=== PATIENT | male | born 1965 | race Caucasian/White ===

== ENCOUNTER → 2017-03-01 | Outpatient (CLI) | payer OTHER ==
--- NOTE | 2017-03-01 11:58 | EST ---
DATE OF SERVICE: 03/01/2017 AGE: 51Y SEX: M HT: 71" WT: 240 lbs. Protocol Ethan: X Other: Stress Stage: 2 Dur. of Exercise: 7:00 *Heart Rate Blood Pressure *Rest: 69 Rest: 151/94 * *Max. Achieved: 158 Maximum BP: 189/90 85% PMHR: 142 100% PMHR: 167 *METS: 8.5 INDICATIONS: Chest pain. MEDICATIONS: Zolpidem, diclofenac, amphetamines. Patient was exercised for a total period of 7 minutes. Peak heart rate of 158 was achieved. Maximum blood pressure of 189/90 mmHg was noted. Resting EKG shows normal sinus rhythm, more NH interval and QRS duration and normal ST-T waves. No ST segment depression suggestive of ischemia was noted. Patient did not complain of any chest pain during the test. FINAL IMPRESSION: 1. This exercise test is not suggestive of ischemia. 2. Patient's exercise tolerance is below-average. 3. Patient did not complain of any chest pain during the test.
== END ==
LOC: RADNMMAIN 10:35
PROVIDERS: ATTEND Internal Medicine
DX: Z09 Encounter for follow-up examination after completed treatment for conditions other than malignant neoplasm (principal); Z82.49 Family history of ischemic heart disease and other diseases of the circulatory system
CPT/HCPCS: 93017

== ENCOUNTER → 2017-11-08 | Outpatient (CLI) | payer OTHER ==
--- NOTE | 2017-11-08 08:56 | CT ---
EXAMINATION TYPE: CT abdomen wo con DATE OF EXAM: 11/08/2017 COMPARISON: NONE HISTORY: LUQ pain CT DLP: 811 mGycm Automated exposure control for dose reduction was used. TECHNIQUE: Helical acquisition of images was performed from the lung bases through the top of iliac crest to include entire abdomen. CONTRAST: Performed and without IV contrast. FINDINGS: Lack of intravenous contrast may compromise the exam. LUNG BASES: No significant abnormality is appreciated. LIVER/GB: No significant abnormality is appreciated. PANCREAS: No significant abnormality is seen. SPLEEN: No significant abnormality is seen. ADRENALS: No significant abnormality is seen. KIDNEYS: Possible parapelvic cysts present. BOWEL: The appendix is normal. No bowel obstruction. LYMPH NODES: No significant abnormality is appreciated. OSSEOUS STRUCTURES: No significant abnormality is seen. FREE AIR: No Free Air visible ASCITES: None visible. RETROPERITONEAL ADENOPATHY: No Retroperitoneal Adenopathy visible. OTHER: IMPRESSION: NONCONTRAST EXAM. NO SIGNIFICANT ABNORMALITY EVIDENT WITHIN THE ABDOMEN. POSSIBLE PARAPELVIC CYSTS WI THIN THE KIDNEYS.
== END | disposition home or self-care (01) ==
LOC: RADCTMAIN 06:55
PROVIDERS: ATTEND Internal Medicine
DX: R10.12 Left upper quadrant pain (principal)
CPT/HCPCS: 74150

== ENCOUNTER → 2019-10-30 | Outpatient (CLI) | payer OTHER ==
--- NOTE | 2019-10-30 09:50 | US ---
EXAMINATION TYPE: US abdomen complete DATE OF EXAM: 10/30/2019 COMPARISON: NONE CLINICAL HISTORY: R10.9 abdominal pain. bloating and abd pain EXAM MEASUREMENTS: Liver Length: 15.9 cm Gallbladder Wall: 0.2 cm CBD: 0.8 cm Spleen: 10.7 cm Right Kidney: 9.1 x 5.2 x 6.3 cm Left Kidney: 11.1 x 4.6 x 6.1 cm Pancreas: wnl Liver: wnl Gallbladder: wnl Evidence for sonographic Ramos's sign: no CBD: wnl Spleen: wnl Right Kidney: wnl Left Kidney: wnl Upper IVC: wnl Abd Aorta: wnl The liver is homogenous. The intrahepatic portion of the IVC and proximal abdominal aorta are within normal limits. There is no evidence of cholelithiasis. Common bile duct is unremarkable. The visu alized portions of the pancreas are homogenous. The spleen is unremarkable. Kidneys are symmetric a nd free of hydronephrosis. No renal lesions are seen. IMPRESSION: Unremarkable abdominal ultrasound. No sonographic evidence of cholelithiasis nor acute ch olecystitis.
== END | disposition home or self-care (01) ==
LOC: RADUSWWP 08:55
PROVIDERS: ATTEND Family Medicine
DX: R10.9 Unspecified abdominal pain (principal)
CPT/HCPCS: 76700

== ENCOUNTER → 2022-09-12 | Outpatient (CLI) | payer OTHER ==
--- NOTE | 2022-09-12 10:43 | US ---
EXAMINATION TYPE: US carotid duplex BILAT DATE OF EXAM: 09/12/2022 COMPARISON: NONE CLINICAL HISTORY: R53.83 FATIGUE. Fatigue. TECHNIQUE: Carotid duplex ultrasound examination. Indirect Doppler criteria was utilized. FINDINGS: EXAM MEASUREMENTS: RIGHT: Peak Systolic Velocity (PSV) cm/sec ----- Right CCA: 87.5 ----- Right ICA: 103.0 ----- Right ECA: 124.6 ICA/CCA ratio: 1.2 RIGHT: End Diastole cm/sec ----- Right CCA: 25.9 ----- Right ICA: 28.0 ----- Right ECA: 17.2 LEFT: Peak Systolic Velocity (PSV) cm/sec ----- Left CCA: 101.8 ----- Left ICA: 107.9 ----- Left ECA: 105.3 ICA/CCA ratio: 1.1 LEFT: End Diastole cm/sec ----- Left CCA: 30.3 ----- Left ICA: 36.5 ----- Left ECA: 12.7 VERTEBRALS (direction of flow): Right Vertebral: Antegrade Left Vertebral: Antegrade Rhythm: Normal INSIDE PLANT SUPERVISOR NOTES: No significant stenosis seen by today's ultrasound. IMPRESSION: Less than 50% stenosis of the bilateral carotid bifurcations. Criteria for Assigning % of Stenosis / Diameter reduction (Estimation based on the indirect measurements of the internal carotid artery velocities (ICA PSV). 1. Normal (no stenosis)=ICA PSV < 125 cm/s: ratio < 2.0: ICA EDV<40 cm/s. 2. Less than 50% stenosis=ICA PSV < 125 cm/s: ratio < 2.0: ICA EDV<40 cm/s. 3. 50 to 69% stenosis=ICA PSV of 125 to 230 cm/s: ration 2.0 ? 4.0: ICA EDV 40-100 cm/s. 4. Greater than 70% stenosis to near occlusion= ICA PSV > 230 cm/s: ratio > 4.0: ICA EDV > 100 cm/s. 5. Near occlusion= ICA PSV velocities may be low or undetectable: variable ratio and ICA EDV. 6. Total occlusion=unable to detect flow.
== END | disposition home or self-care (01) ==
LOC: RADUSWWP 09:36
PROVIDERS: ATTEND Family Medicine
DX: I65.23 Occlusion and stenosis of bilateral carotid arteries (principal)
CPT/HCPCS: 93880

== ENCOUNTER → 2023-07-08 | Outpatient (CLI) | payer OTHER ==
--- NOTE | 2023-07-08 14:11 | XR ---
EXAMINATION TYPE: XR ankle complete LT, XR foot complete LT DATE OF EXAM: 07/08/2023 2:06 PM CLINICAL INDICATION:Male, 57 years old with history of S93.402A L ankle sprain; [facility] COMPARISON: None TECHNIQUE: XR ankle complete LT, XR foot complete LT; foot and ankle are imaged in frontal, lateral and oblique projections. FINDINGS: There is no evidence of acute osseous pathology. The joint spaces are well-preserved without evidenc e of subluxation or dislocation. Kager's fat pad is intact. No radiopaque foreign bodies are identifi ed. IMPRESSION: 1. No evidence of acute fracture. 2. Subcutaneous swelling around the ankle likely secondary to underlying soft tissue injury.
== END | disposition home or self-care (01) ==
LOC: RADXRMAIN 13:44
PROVIDERS: ATTEND Emergency Medicine
DX: S93.402A Sprain of unspecified ligament of left ankle, initial encounter (principal); M79.89 Other specified soft tissue disorders

== ENCOUNTER → 2023-10-01 | Outpatient (CLI) | payer OTHER ==
--- NOTE | 2023-10-01 20:40 | CT ---
EXAMINATION TYPE: CT abdomen pelvis wo con DATE OF EXAM: 10/01/2023 COMPARISON: 12/06/2017 HISTORY: Abdominal distention x [address] DLP: 1926.7 mGycm Automated exposure control for dose reduction was used. TECHNIQUE: Helical acquisition of images was performed from the lung bases through the pelvis. FINDINGS: Visualized lungs are clear. Gallbladder is normal without distention, wall thickening, gallstones or pericholecystic fluid. There is no organomegaly involving the solid visceral organs of the upper abdomen. There is no renal calcification or hydronephrosis. The caliber the abdominal aorta is normal. The bowel loops are normal in caliber is no dilatation or obstruction. No inflammatory changes are id entified in the bowel wall or mesentery. There is no free intraperitoneal air or fluid. There is no pelvic mass, free fluid, abscess or adenopathy. Abdominal wall is intact and there is no evidence of hernia. There is no focal osseous lesion. IMPRESSION: No significant abnormality seen.
--- NOTE | 2023-10-02 10:31 | CA ---
Transthoracic Echo Report Name: Christiano Newman Age: 58 Gender: M : 1965 Exam Date: 10/01/2023 16:59 Exam Location: [place] [facility] Ht (in): 73 Wt (lb): Ordering Physician: Beto Martel DO Attending/Referring Phys: Jennifer Hernandez [facility] Machine Pecan Picker Haydee Andino RDCS Procedure CPT: Indications: R00.1 BRADYCARDIA, UNSPECIFIED R10.32, Cardiac Hx: Technical Quality: Fair Contrast 1: Total Dose (mL): Contrast 2: Total Dose (mL): MEASUREMENTS (Male / Female) Normal Values 2D ECHO LV Diastolic Diameter PLAX 3.1 cm 4.2 - 5.9 / 3.9 - 5.3 cm LV Systolic Diameter PLAX 1.9 cm IVS Diastolic Thickness 1.5 cm 0.6 - 1.0 / 0.6 - 0.9 cm LVPW Diastolic Thickness 1.3 cm 0.6 - 1.0 / 0.6 - 0.9 cm LV Relative Wall Thickness 0.9 RV Internal Dim ED PLAX 3.2 cm LA Volume 49.6 cm??? 18 - 58 / 22 - 52 cm??? M-MODE Aortic Root Diameter MM 3.6 cm LA Systolic Diameter MM 3.6 cm LA Ao Ratio MM 1.0 AV Cusp Separation MM 1.8 cm DOPPLER AV Peak Velocity 153.1 cm/s AV Peak Gradient 9.4 mmHg AV Mean Velocity 101.2 cm/s AV Mean Gradient 4.6 mmHg AV Velocity Time Integral 33.1 cm LVOT Peak Velocity 127.4 cm/s LVOT Peak Gradient 6.5 mmHg LVOT Velocity Time Integral 30.3 cm MV Area PHT 3.3 cm??? Mitral E Point Velocity 92.2 cm/s Mitral A Point Velocity 69.1 cm/s Mitral E to A Ratio 1.3 MV Deceleration Time 230.1 ms MV E' Velocity 7.1 cm/s Mitral E to MV E' Ratio 13.0 TR Peak Velocity 184.8 cm/s TR Peak Gradient 13.7 mmHg Right Ventricular Systolic Press 18.7 mmHg FINDINGS Left Ventricle Moderately increased left ventricular wall thickness. Left ventricular cavity size normal. Normal left ventricular systolic function with no obvious regional wall motion abnormalities. Left ventricular ejection fraction is estimated at 55-60 %. Right Ventricle Normal right ventricular size and function. Right ventricular systolic pressure within normal limits. Right Atrium Normal right atrial size. Left Atrium Normal left atrial size. Mitral Valve Structurally normal mitral valve. No mitral stenosis. Mild mitral regurgitation. Aortic Valve Trileaflet aortic valve. No aortic valve stenosis or regurgitation. Tricuspid Valve Structurally normal tricuspid valve. Mild tricuspid regurgitation. Pulmonic Valve Trace pulmonic regurgitation. Pericardium No pericardial effusion. Aorta Normal size aortic root and proximal ascending aorta. CONCLUSIONS LVH with preserved systolic function Previewed by: Dr. Jamaal Vieyra MD (Electronically Signed) Final Date: 02 October 2023 10:31
== END | disposition home or self-care (01) ==
LOC: RADECHMAIN 16:53
PROVIDERS: ATTEND Family Medicine
DX: R00.1 Bradycardia, unspecified (principal); R10.32 Left lower quadrant pain
CPT/HCPCS: 74176; 93306

== ENCOUNTER → 2024-01-11 | Outpatient (CLI) | payer OTHER | END | disposition home or self-care (01) | LOC: LABWHC1 10:27 | PROVIDERS: ATTEND Family Medicine | DX: E29.1 Testicular hypofunction (principal); E66.9 Obesity, unspecified | CPT/HCPCS: 36415; 82533; 82672 ==

== ENCOUNTER → 2024-09-07 | Outpatient (CLI) | payer OTHER ==
[2024-09-07 16:12] VITALS: BP 162/89; PULSE 74; RESP 16; TEMP 98.3
--- NOTE | 2024-09-07 17:57 | P.PROGSL ---
Subjective DATE: 09/07/2024 FOLLOW UP VISIT. Patient with obstructive sleep apnea hypopnea syndrome return to sleep center for follow-up visit. Information from previous visit have been reviewed. Patient has difficulties with using CPAP equipment. This is his first visit to sleep clinic after he received CPAP unit. The patient does not have significant problems with the mask, PAP unit and humidification. Humbird sleepiness scale is slightly increased to 11. I checked information from PAP unit. PAP unit pressure 6-15, average 9.6 cm H2O. Usage is only several nights during the last year for more then 4 hours, average 6.8 hours per night. Leak is 11 l/m, which is in acceptable range. Apnea Hypopnea Index is 3.1, which is normal. Humidity is at level of 2, ramp is off. MEDICATIONS have been reviewed, please see below. During physical exam: GENERAL: A pleasant patient without any distress. VITAL SIGNS: Please see below, weight is 254 lbs. HEENT: PERRLA, EOMI.low position of soft palate, Mallapati . NECK: Supple. No JVD. LUNGS: Clear to percussion and to auscultation. Good air exchange. No wheezing or rhonchi. HEART: S1, S2 regular. ABDOMEN: Soft and nontender.[] EXTREMITIES: No clubbing or cyanosis. CHANNEL BUSINESS MANAGER: Awake, alert, and oriented x3. No focal deficit. Impressions: 1. Obstructive sleep apnea-hypopnea syndrome. Patient was not able to use CPAP treatment recently. 2. Acid reflux. 3. History of sciatica nerve problems. 4. Depression. 5. Hypothyroidism. I explained to the patient how to adjust temperature in the tube and humidifier. I adjusted humidity level up to level 4 instead of 2, ramp was switched from off to automatic. Plan: 1. Continue using PAP equipment every night for the whole night. 2. Sleep hygiene with regular time in bed for at least 7.5-8 hours 3. PAP unit should stay lower then position of the head. 4. Advised patient to remove all remaining water from humidifier canister daily and make it dry after each usage. Refill canister with fresh distilled water before each usage. 5. Watching weight. 6. Precautions related to driving. No driving if feel any sleepiness. 7. I will maintain prescription for PAP supplies including mask, tube, filters. 8. Follow up visit in 2 months or earlier if patient has any problems. Thank you very much for allowing me to participate in the management of your patient. Clayton Toledo MD, PhD, FAASM. Diplomat of [place] [employer], Sleep Medicine Board by [place] [employer] Special Investigator of [facility] [place] cc: Jennifer Hernandez Objective - Vital Signs Vital Signs: Vital Signs Temp 98.3 F 09/07/24 16:11 Pulse 74 09/07/24 16:11 Resp 16 09/07/24 16:11 BP 162/89 09/07/24 16:11 Pulse Ox 99 09/07/24 16:11 FiO2 Intake & Output 09/06/24 09/07/24 09/07/24 18:59 06:59 18:59 Weight 116.12 kg Home Medications: Home Medications Medication Instructions Recorded Confirmed Type Cholecalciferol [Vitamin D3] 2,000 unit PO DAILY 05/01/14 05/01/14 History Levothyroxine Sodium [Synthroid] 09/07/24 History PARoxetine [Paxil] 20 mg PO DAILY 09/07/24 09/07/24 History modafiniL [Provigil] 400 mg PO DAILY 09/07/24 09/07/24 History
== END ==
LOC: 3 N SLEEP 15:38
PROVIDERS: ATTEND Internal Medicine
DX: G47.33 Obstructive sleep apnea (adult) (pediatric) (principal); K21.9 Gastro-esophageal reflux disease without esophagitis; F32.A Depression, unspecified; E03.9 Hypothyroidism, unspecified; Z99.89 Dependence on other enabling machines and devices; Z88.0 Allergy status to penicillin; Z86.69 Personal history of other diseases of the nervous system and sense organs; Z79.890 Hormone replacement therapy
CPT/HCPCS: 99212

== ENCOUNTER → 2025-04-01 | Outpatient (CLI) | payer OTHER ==
--- NOTE | 2025-04-01 19:21 | CT ---
INDICATION: Patient age:Male; 59 years old; Reason for study: J84.9 INTERSTITIAL PULMONARY DISEASE, UNSPECIFIED; [facility]. COMPARISON: Chest radiograph 03/12/2025 TECHNIQUE: Multiple thin axial images were obtained through the chest at selected intervals. Prone and supine in spiratory along with supine expiratory images were submitted for review. Please note that due to inte rval acquisition images as defined by high-resolution CT protocol the entire lung parenchyma is not e valuated, therefore small nodular densities may not be visualized. Evaluation of vascular structures , viscera and lymphatics is limited due to lack of intravenous contrast administration. One or more C T dose reduction strategies were utilized during this examination. Total DLP 1887.00 mGycm. FINDINGS: LUNGS: There is no evidence of interstitial thickening, significant groundglass opacity, honeycombing or architectural distortion in the lungs. No bronchiectasis. There is segmental and subsegmental exp iratory air trapping present. No acute area of infiltrative or consolidative change. LARGE AIRWAYS: Central airways are patent. No dynamic airway collapse on expiratory imaging. PLEURA: No pleural effusion or thickening. HEART AND PERICARDIUM: Heart is normal in size. There is no pericardial effusion. No significant ashley nary artery calcifications. MEDIASTINUM AND ALLY: No mediastinal or hilar lymphadenopathy or soft tissue mass. VESSELS: The thoracic aorta is normal in course and caliber. Bovine aortic arch. CHEST WALL AND DIAPHRAGM: Normal. LOWER NECK: Normal. UPPER ABDOMEN: Unremarkable. MUSCULOSKELETAL: No acute fracture. IMPRESSION: No CT evidence for interstitial lung disease or acute thoracic process. [facility], , 04/01/2025 7:19 PM
== END | disposition home or self-care (01) ==
LOC: RADCTMAIN 17:35
PROVIDERS: ATTEND Internal Medicine
DX: J84.9 Interstitial pulmonary disease, unspecified (principal)
CPT/HCPCS: 71250